=== PATIENT | female | born 1960 | race Caucasian/White ===

== ENCOUNTER 2023-10-07 10:14 | Inpatient (IN) | payer MEDICAID ==
[~2023-10-07] VITALS: Ht 157.5 cm; Wt 78.2 kg
[2023-10-07] MEDS: IV NS 0.9% 1,000 ML BAG IV ONE (11:00)
[2023-10-07 11:08] LABS: BASOPHILS # (AUTO) 0.1 K/uL (0.0-0.2); BASOPHILS % (AUTO) 0.5 % (0.0-2.0); EOSINOPHILS # (AUTO) 0.2 K/uL (0.0-0.7); EOSINOPHILS % (AUTO) 1.4 % (0.0-6.0); HEMATOCRIT 32 % (33-45); HEMOGLOBIN 10.4 g/dL (11.5-14.8); LYMPHOCYTES # (AUTO) 3.2 K/uL (0.8-4.8); LYMPHOCYTES % (AUTO) 28.6 % (20.0-44.0); MEAN CORPUSCULAR HEMOGLOBIN 30 PG (26.0-33.0); MEAN CORPUSCULAR HGB CONC 33 g/dl (31.0-36.0); MEAN CORPUSCULAR VOLUME 93 fL (82-100); MONOCYTES % (AUTO) 9.3 % (2.0-12.0); NEUTROPHILS # (AUTO) 6.7 K/uL (1.8-8.9); NEUTROPHILS % (AUTO) 60.2 % (43.0-81.0); PLATELET COUNT (AUTO) 391 K/uL (150-450); RED BLOOD CELL COUNT(AUTO) 3.44 MIL/uL (4.0-5.2); RED CELL DISTRIBUTION WIDTH 15.1 % (11.5-15.0); WHITE BLOOD COUNT (AUTO) 11.2 K/uL (4.3-11.0)
[2023-10-07 11:20] LABS: INR 1.01 (0.91-1.10); PARTIAL THROMBOPLASTIN TIME 27.9 SEC (24.3-34.3); PROTHROMBIN TIME 10.7 SECS (9.2-11.1)
[2023-10-07 11:29] LABS: CALCIUM, SERUM 8.9 mg/dL (8.5-10.1); CARBON DIOXIDE 30 mmol/L (21-32); CHLORIDE 106 mmol/L (98-107); CREATININE 0.9 mg/dL (0.6-1.3); GLUCOSE 127 mg/dL (74-106); LACTIC ACID 2.2 mmol/L (0.4-2.0); POTASSIUM 4.4 mmol/L (3.5-5.1); SODIUM SERUM 145 mmol/L (136-145); UREA NITROGEN, BLOOD 14 mg/dL (7-18)
[2023-10-07] MEDS: VANCOMYCIN 1 GM in IV D5W 250 ML IV ONE (11:30)
[2023-10-07 11:33] LABS: ALANINE AMINOTRANSFERASE 25 U/L (12-78); ALBUMIN 3.1 g/dL (3.4-5.0); ALKALINE PHOSPHATASE 87 U/L (46-116); ASPARTATE AMINOTRANSFERASE 12 U/L (15-37); BILIRUBIN,DIRECT 0.1 mg/dL (0.0-0.2); BILIRUBIN,TOTAL 0.6 mg/dL (0.2-1.0); TOTAL PROTEIN, SERUM 7.9 g/dL (6.4-8.2)
[2023-10-07] MEDS: PIPERACILLIN /TAZOBACTAM 3.375 G in IV D5W 50 ML IV ONE (11:40)
[2023-10-07] MEDS ORDERED: IPRA4AER INH (12:18)
[2023-10-07] MEDS ORDERED: LABE100T5 GT (12:18)
[2023-10-07] MEDS ORDERED: MAGN400O6 GT (12:18)
[2023-10-07] MEDS ORDERED: CHLO473M5 PO (12:18)
[2023-10-07] MEDS ORDERED: PANT40SU2 GT (12:18)
[2023-10-07] MEDS ORDERED: PROP10TA10 GT (12:18)
[2023-10-07] MEDS ORDERED: IPRA4AER IH (12:18)
[2023-10-07] MEDS ORDERED: FERR220E2 GT (12:18)
[2023-10-07] MEDS ORDERED: ACET325T53 GT (12:18)
[2023-10-07] MEDS ORDERED: CRAN3875 GT (12:18)
[2023-10-07] MEDS ORDERED: NUT.237L31 GT (12:18)
[2023-10-07] MEDS ORDERED: NA P133E RC (12:18)
[2023-10-07] MEDS ORDERED: ACET-2030 GT (12:18)
[2023-10-07] MEDS ORDERED: LEVE100S GT (12:18)
[2023-10-07] MEDS ORDERED: MEROPENEM 1 G in IV NS 0.9% 100 ML IV SCH (13:30)
[2023-10-07 14:37] LABS: APPEARANCE,URINE CLEAR (CLEAR); BILIRUBIN,URINE NEGATIVE (NEGATIVE); BLOOD, URINE TRACE-INTA Ery/uL (NEGATIVE); KETONES,URINE NEGATIVE (NEGATIVE); LEUKOCYTE ESTERASE ,URINE 1+ (NEGATIVE); NITRITE, URINE NEGATIVE (NEGATIVE); PROTEIN,URINE NEGATIVE (NEGATIVE); UGLUCOSE NEGATIVE (NEGATIVE); UROBILINOGEN,URINE 0.2 EU/dL (0.2)
[2023-10-07 14:49] LABS: COLOR,URINE LIGHT YELLOW (YELLOW)
[2023-10-07 14:51] LABS: ADD URINE CULTURE YES; BACTERIA,URINE 1+ /HPF (None Seen); MUCUS,URINE Few /LPF (None Seen); YEAST,URINE Few /HPF (None Seen)
[2023-10-07] MEDS ORDERED: IV NS 0.9% 1,000 ML BAG IV ONE (15:30)
[2023-10-07] MEDS ORDERED: ACETAMINOPHEN 650 MG/SUPP.RECT RC ONE (15:30)
[2023-10-07] MEDS ORDERED: ACETAMINOPHEN ES 500 MG TABLET GT PRN (16:30)
[2023-10-07] MEDS ORDERED: LABETALOL HCL (100MG) 100 MG TABLET GT PRN (16:30)
[2023-10-07] MEDS ORDERED: HOME MED MISCELLANEOUS XX SCH (16:30)
[2023-10-07] MEDS ORDERED: GLUCERNA 1.5 1,000 ML BOTTLE GT SCH (16:30)
[2023-10-07] MEDS ORDERED: NA PHOS,M-B/NA PHOS,DI-BA 1 EA ENEMA RC PRN (16:30)
[2023-10-07] MEDS ORDERED: ONDANSETRON HCL/PF 4 MG/2 ML VIAL IVP PRN (16:30)
[2023-10-07] MEDS ORDERED: ACETAMINOPHEN 325 MG TABLET MC PRN (16:30)
[2023-10-07] MEDS ORDERED: ALBUTEROL FS 2.5 MG/3 ML VIAL.NEB NEB PRN (16:30)
[2023-10-07] MEDS ORDERED: Z GUARD REMEDY 4 OZ OINT TP PRN (16:30)
[2023-10-07] MEDS ORDERED: IPRATROPIUM NEB FS 0.5 MG/2.5 ML AMPUL.NEB NEB PRN (16:30)
[2023-10-07] MEDS ORDERED: MAGNESIUM HYDROXIDE 30 ML UDC GT PRN (16:30)
[2023-10-07 16:54] VITALS: BP 114/72; TEMP 99.1; O2SAT 97
[2023-10-07] MEDS ORDERED: ACETAMINOPHEN 650 MG/20.3 ML UDC PO PRN (17:00)
[2023-10-07] MEDS: CHLORHEXIDINE GLUCONATE 15 ML UDC MM SCH (17:22)
[2023-10-07] MEDS: ENOXAPARIN SODIUM 40 MG/0.4 ML DISP.SYRIN SQ SCH (17:23)
[2023-10-07 20:00] VITALS: BP 107/59; TEMP 97.3; O2SAT 100
[2023-10-07] MEDS: MEROPENEM 1 G in IV NS 0.9% 100 ML IV SCH (21:29)
[2023-10-07] MEDS: LEVETIRACETAM SOL (5 ML) 100 MG/ML UDC GT SCH (21:29)
[2023-10-07] MEDS: PROPRANOLOL HCL 10 MG TABLET GT SCH (21:29)
[2023-10-08] VITALS (7 sets, daily range): BP systolic 99–120; BP diastolic 52–66; TEMP 97.3–98.2; O2SAT 94–99
[2023-10-08] MEDS: VANCOMYCIN 1 GM in IV D5W 250ml IV SCH (01:24)
[2023-10-08] MEDS: GLUCERNA 1.2 1,000 ML BOTTLE NG PRN ×2 (01:36→21:19)
[2023-10-08 07:25] LABS: BASOPHILS % (AUTO) 0.3 % (0.0-2.0); EOSINOPHILS # (AUTO) 0.2 K/uL (0.0-0.7); HEMATOCRIT 29 % (33-45); HEMOGLOBIN 9.4 g/dL (11.5-14.8); LYMPHOCYTES % (AUTO) 26.2 % (20.0-44.0); MEAN CORPUSCULAR HEMOGLOBIN 31 PG (26.0-33.0); MEAN CORPUSCULAR HGB CONC 33 g/dl (31.0-36.0); MEAN CORPUSCULAR VOLUME 94 fL (82-100); MONOCYTES % (AUTO) 13.2 % (2.0-12.0); NEUTROPHILS # (AUTO) 4.3 K/uL (1.8-8.9); NEUTROPHILS % (AUTO) 57.3 % (43.0-81.0); PLATELET COUNT (AUTO) 303 K/uL (150-450); RED BLOOD CELL COUNT(AUTO) 3.08 MIL/uL (4.0-5.2); WHITE BLOOD COUNT (AUTO) 7.5 K/uL (4.3-11.0)
[2023-10-08 07:40] LABS: CALCIUM, SERUM 9.4 mg/dL (8.5-10.1); CREATININE 0.6 mg/dL (0.6-1.3); MAGNESIUM 2.4 mg/dL (1.8-2.4); PHOSPHORUS 3.5 mg/dL (2.5-4.9); POTASSIUM 3.7 mmol/L (3.5-5.1)
[2023-10-08] MEDS: FERROUS SULFATE UDC 300 MG/5 ML UDC GT SCH (09:14)
[2023-10-08] MEDS: PANTOPRAZOLE 40 MG/PACK PACK GT SCH (09:15)
[2023-10-09] VITALS: BP 103/53; TEMP 98.3; O2SAT 98
[2023-10-09 04:00] VITALS: BP 103/52; TEMP 98.1; O2SAT 98
[2023-10-09 07:12] LABS: CALCIUM, SERUM 8.9 mg/dL (8.5-10.1); CREATININE 0.7 mg/dL (0.6-1.3); POTASSIUM 4.1 mmol/L (3.5-5.1)
[2023-10-09 08:00] VITALS: BP 108/46; TEMP 99.6; O2SAT 98
[2023-10-09 12:00] VITALS: BP 102/55; TEMP 97.3; O2SAT 98
[2023-10-09] MEDS: ACETAMINOPHEN 650 MG/20.3 ML UDC GT PRN (13:07)
[2023-10-09 16:00] VITALS: BP 102/53; TEMP 100.5; O2SAT 98
[2023-10-09 20:00] VITALS: BP 128/69; TEMP 97.5; O2SAT 94; O2SAT 98
[2023-10-10] VITALS (7 sets, daily range): BP systolic 104–111; BP diastolic 56–66; TEMP 98.6–99.7; O2SAT 96–100
[2023-10-10 07:12] LABS: CALCIUM, SERUM 9.3 mg/dL (8.5-10.1); CREATININE 0.8 mg/dL (0.6-1.3); POTASSIUM 3.9 mmol/L (3.5-5.1)
[2023-10-11] VITALS (7 sets, daily range): BP systolic 98–122; BP diastolic 52–72; TEMP 98.4–99; O2SAT 98–99
[2023-10-11] MEDS ORDERED: VANCOMYCIN HCL 1.25 GM in IV D5W 250 ML IV SCH
[2023-10-11] MEDS: IV NS 0.9% 250 ML IV PRN (01:54)
[2023-10-11 06:51] LABS: CALCIUM, SERUM 8.8 mg/dL (8.5-10.1); CREATININE 0.7 mg/dL (0.6-1.3); POTASSIUM 3.9 mmol/L (3.5-5.1)
[2023-10-11] MEDS: VANCOMYCIN 750 MG in IV D5W 250 ML IV SCH (15:00)
[2023-10-11 15:30] LABS: BASOPHILS # (AUTO) 0.1 K/uL (0.0-0.2); BASOPHILS % (AUTO) 0.9 % (0.0-2.0); EOSINOPHILS # (AUTO) 0.3 K/uL (0.0-0.7); EOSINOPHILS % (AUTO) 5.4 % (0.0-6.0); HEMATOCRIT 26 % (33-45); HEMOGLOBIN 8.4 g/dL (11.5-14.8); LYMPHOCYTES # (AUTO) 1.9 K/uL (0.8-4.8); LYMPHOCYTES % (AUTO) 33.6 % (20.0-44.0); MEAN CORPUSCULAR HEMOGLOBIN 31 PG (26.0-33.0); MEAN CORPUSCULAR HGB CONC 33 g/dl (31.0-36.0); MEAN CORPUSCULAR VOLUME 94 fL (82-100); MONOCYTES # (AUTO) 0.5 K/uL (0.1-1.30); MONOCYTES % (AUTO) 8.7 % (2.0-12.0); NEUTROPHILS # (AUTO) 2.9 K/uL (1.8-8.9); NEUTROPHILS % (AUTO) 51.4 % (43.0-81.0); PLATELET COUNT (AUTO) 301 K/uL (150-450); RED BLOOD CELL COUNT(AUTO) 2.73 MIL/uL (4.0-5.2); RED CELL DISTRIBUTION WIDTH 15.4 % (11.5-15.0); WHITE BLOOD COUNT (AUTO) 5.7 K/uL (4.3-11.0)
[2023-10-12] VITALS: BP 114/62; TEMP 98.2; O2SAT 100
[2023-10-12 04:00] VITALS: BP 103/67; TEMP 97.7; O2SAT 99
[2023-10-12 08:00] VITALS: BP 118/74; TEMP 98.1; O2SAT 99
[2023-10-12] MEDS: LINEZOLID 600 MG TABLET PEG SCH (10:13)
[2023-10-12 12:00] VITALS: BP 114/72; TEMP 97.2; O2SAT 100
[2023-10-12] MEDS ORDERED: ENOX40DI SQ (12:45)
[2023-10-12] MEDS ORDERED: FERR300L GT (12:45)
[2023-10-12] MEDS ORDERED: Linezolid PEG (12:45)
[2023-10-12 16:00] VITALS: BP 135/65; TEMP 98.5; O2SAT 100
[2023-10-12 20:00] VITALS: TEMP 98.8; O2SAT 100
== END 2023-10-12 21:40 | DRG 720 ==
LOC: ER 10:45 → TELE1 16:19
PROVIDERS: ADMIT Nurse Practitioner Acute Care; ATTEND Internal Medicine
PROC: 5A1955Z Respiratory Ventilation, Greater than 96 Consecutive Hours (ICD-10-PCS; principal; 2023-10-07)
DX: A41.9 Sepsis, unspecified organism (principal); J96.21 Acute and chronic respiratory failure with hypoxia; G93.41 Metabolic encephalopathy; J15.9 Unspecified bacterial pneumonia; E87.20 Acidosis, unspecified; D68.59 Other primary thrombophilia; Z93.0 Tracheostomy status; Z99.11 Dependence on respirator [ventilator] status; N39.0 Urinary tract infection, site not specified; D64.9 Anemia, unspecified; E66.9 Obesity, unspecified; I10 Essential (primary) hypertension; R13.10 Dysphagia, unspecified; Z86.73 Personal history of transient ischemic attack (TIA), and cerebral infarction without residual deficits; Z93.1 Gastrostomy status; Z74.09 Other reduced mobility; G40.909 Epilepsy, unspecified, not intractable, without status epilepticus; Z68.31 Body mass index [BMI] 31.0-31.9, adult; S60.423A Blister (nonthermal) of left middle finger, initial encounter; X58.XXXA Exposure to other specified factors, initial encounter; Y93.9 Activity, unspecified; Y92.129 Unspecified place in nursing home as the place of occurrence of the external cause; B95.2 Enterococcus as the cause of diseases classified elsewhere; Z16.21 Resistance to vancomycin; L03.114 Cellulitis of left upper limb
CPT/HCPCS: 31720; 36415; 71045-TC; 80048-TC; 80061-TC; 80076-TC; 80202-TC; 81001; 83605-TC; 83735-TC; 84100-TC; 84484-TC; 85025-TC; 85730-TC; 87040-TC; 87086-TC; 94002-TC; 94003-TC; 94640-TC; 94760-TC; 94762-TC; 94799-TC; 99082-TC; A4223; G0378; J1650; J1953; J2185; J2543; J3370; J3371; J3490; J7030; J7050; J7060

== ENCOUNTER 2024-01-09 13:25 | Inpatient (IN) | payer MEDICAID ==
[~2024-01-09] VITALS: Ht 152.4 cm; Wt 74.4 kg
[~2024-01-09 13:25] MED LIST: ACET-2030 GT; ACET325T53 GT; CHLO473M5 PO; CRAN3875 GT; ENOX40DI SQ; FERR220E2 GT; FERR300L GT; IPRA4AER IH; IPRA4AER INH; LABE100T5 GT; LEVE100S GT; Linezolid PEG; MAGN400O6 GT; NA P133E RC; NUT.237L31 GT; PANT40SU2 GT; PROP10TA10 GT
[2024-01-09] MEDS: IV NS 0.9% 1,000 ML BAG IV ONE (13:55)
[2024-01-09] MEDS: CEFEPIME 1 GM in IV D5W 50 ML IV ONE (14:00)
[2024-01-09 14:06] LABS: BASOPHILS % (AUTO) 0.6 % (0.0-2.0); EOSINOPHILS # (AUTO) 0.1 K/uL (0.0-0.7); HEMATOCRIT 29 % (33-45); HEMOGLOBIN 9.8 g/dL (11.5-14.8); LYMPHOCYTES # (AUTO) 2.9 K/uL (0.8-4.8); LYMPHOCYTES % (AUTO) 38.7 % (20.0-44.0); MEAN CORPUSCULAR HEMOGLOBIN 33 PG (26.0-33.0); MEAN CORPUSCULAR HGB CONC 33 g/dl (31.0-36.0); MEAN CORPUSCULAR VOLUME 98 fL (82-100); MONOCYTES # (AUTO) 0.6 K/uL (0.1-1.30); MONOCYTES % (AUTO) 7.4 % (2.0-12.0); NEUTROPHILS # (AUTO) 3.8 K/uL (1.8-8.9); NEUTROPHILS % (AUTO) 51.3 % (43.0-81.0); PLATELET COUNT (AUTO) 315 K/uL (150-450); RED BLOOD CELL COUNT(AUTO) 3.01 MIL/uL (4.0-5.2); RED CELL DISTRIBUTION WIDTH 15.7 % (11.5-15.0); WHITE BLOOD COUNT (AUTO) 7.5 K/uL (4.3-11.0)
[2024-01-09 14:22] LABS: INR 1.01 (0.91-1.10); PARTIAL THROMBOPLASTIN TIME 24.1 SEC (24.3-34.3); PROTHROMBIN TIME 10.7 SECS (9.2-11.1)
[2024-01-09 14:23] LABS: ALANINE AMINOTRANSFERASE 15 U/L (12-78); ALBUMIN 3.7 g/dL (3.4-5.0); ALKALINE PHOSPHATASE 48 U/L (46-116); ASPARTATE AMINOTRANSFERASE 11 U/L (15-37); BILIRUBIN,DIRECT 0.1 mg/dL (0.0-0.2); BILIRUBIN,TOTAL 0.5 mg/dL (0.2-1.0); CALCIUM, SERUM 9.2 mg/dL (8.5-10.1); CARBON DIOXIDE 30 mmol/L (21-32); CHLORIDE 103 mmol/L (98-107); CREATININE 0.9 mg/dL (0.6-1.3); GLUCOSE 115 mg/dL (74-106); POTASSIUM 4.3 mmol/L (3.5-5.1); SODIUM SERUM 144 mmol/L (136-145); TOTAL PROTEIN, SERUM 7.8 g/dL (6.4-8.2); UREA NITROGEN, BLOOD 10 mg/dL (7-18)
[2024-01-09] MEDS: VANCOMYCIN 1 GM in IV D5W 250 ML IV ONE (14:25)
[2024-01-09 14:28] LABS: LACTIC ACID 2.9 mmol/L (0.4-2.0)
[2024-01-09 14:32] LABS: APPEARANCE,URINE CLEAR (CLEAR); BILIRUBIN,URINE NEGATIVE (NEGATIVE); BLOOD, URINE NEGATIVE Ery/uL (NEGATIVE); COLOR,URINE YELLOW (YELLOW); KETONES,URINE NEGATIVE (NEGATIVE); LEUKOCYTE ESTERASE ,URINE NEGATIVE (NEGATIVE); NITRITE, URINE NEGATIVE (NEGATIVE); PROTEIN,URINE NEGATIVE (NEGATIVE); UGLUCOSE NEGATIVE (NEGATIVE); UROBILINOGEN,URINE 0.2 EU/dL (0.2)
[2024-01-09] MEDS ORDERED: NUT.237L30 GT (14:36)
[2024-01-09] MEDS ORDERED: ACETAMINOPHEN 325 MG TABLET ONE (14:36)
[2024-01-09] MEDS ORDERED: CEFT2VIA64 IV (14:36)
[2024-01-09] MEDS ORDERED: BISA10SU11 RC (14:36)
[2024-01-09] MEDS: ACETAMINOPHEN 650 MG/20 ML UDC- SA PATIENTS-FEVER ONLY GT PRN (14:45)
[2024-01-09] MEDS ORDERED: BISACODYL SUPP (10 MG) 10 MG/SUPP.RECT SUPP.RECT RC PRN (16:30)
[2024-01-09] MEDS ORDERED: Z GUARD REMEDY 4 OZ OINT TP PRN (16:30)
[2024-01-09] MEDS ORDERED: ACETAMINOPHEN 650 MG/20.3 ML UDC PEG PRN (16:30)
[2024-01-09] MEDS ORDERED: ONDANSETRON HCL/PF 4 MG/2 ML VIAL IVP PRN (16:30)
[2024-01-09] MEDS ORDERED: IOHEXOL-300 100 ML VIAL IV ONE (17:30)
[2024-01-09] MEDS ORDERED: IV NS 0.9% 250 ML IV ONE (17:31)
[2024-01-09] MEDS ORDERED: Medication Not On Formulary EA (Ipratropium/Albuterol Sulfate (Combivent Respimat 20-100 IH SCH (18:00)
[2024-01-09 18:20] VITALS: BP 110/61; TEMP 98.1; O2SAT 99
[2024-01-09] MEDS: IPRATROPIUM NEB FS 0.5 MG/2.5 ML AMPUL.NEB NEB SCH (19:59)
[2024-01-09] MEDS: ALBUTEROL FS 2.5 MG/3 ML VIAL.NEB NEB SCH (19:59)
[2024-01-09 20:00] VITALS: BP 117/69; TEMP 97.5; O2SAT 100
[2024-01-09] MEDS: CHLORHEXIDINE GLUCONATE 15 ML UDC MM SCH (20:56)
[2024-01-09] MEDS: LEVETIRACETAM SOL (5 ML) 100 MG/ML UDC GT SCH (21:46)
[2024-01-09] MEDS: HEPARIN SODIUM, PORCINE 5000 UNITS/1 ML VIAL SQ SCH (21:47)
[2024-01-09] MEDS: IV D5/ 0.9% NACL 1,000 ML IV PRN (21:48)
[2024-01-09] MEDS: VANCOMYCIN 1 GM /D5W 250 ML PB IV ONE (21:55)
[2024-01-09] MEDS: VANCOMYCIN 500 MG in IV D5W 100ml IV ONE (22:04)
[2024-01-09] MEDS ORDERED: CEFEPIME 1 GM VIAL ONE (22:50)
[2024-01-09] MEDS: CEFEPIME 2 GM in IV D5W 100 ML IV SCH (22:57)
[2024-01-10] VITALS: BP 130/69; TEMP 97.5; O2SAT 100
[2024-01-10 04:00] VITALS: BP 125/71; TEMP 97.7; O2SAT 100
[2024-01-10] MEDS ORDERED: CEFEPIME 1 GM VIAL ONE (05:24)
[2024-01-10 07:26] LABS: BASOPHILS % (AUTO) 0.8 % (0.0-2.0); EOSINOPHILS # (AUTO) 0.2 K/uL (0.0-0.7); EOSINOPHILS % (AUTO) 2.5 % (0.0-6.0); HEMATOCRIT 26 % (33-45); HEMOGLOBIN 8.5 g/dL (11.5-14.8); LYMPHOCYTES # (AUTO) 1.3 K/uL (0.8-4.8); LYMPHOCYTES % (AUTO) 20.2 % (20.0-44.0); MEAN CORPUSCULAR HEMOGLOBIN 33 PG (26.0-33.0); MEAN CORPUSCULAR HGB CONC 33 g/dl (31.0-36.0); MEAN CORPUSCULAR VOLUME 99 fL (82-100); MONOCYTES # (AUTO) 0.5 K/uL (0.1-1.30); MONOCYTES % (AUTO) 7.9 % (2.0-12.0); NEUTROPHILS # (AUTO) 4.5 K/uL (1.8-8.9); NEUTROPHILS % (AUTO) 68.6 % (43.0-81.0); PLATELET COUNT (AUTO) 270 K/uL (150-450); RED BLOOD CELL COUNT(AUTO) 2.58 MIL/uL (4.0-5.2); RED CELL DISTRIBUTION WIDTH 15.4 % (11.5-15.0); WHITE BLOOD COUNT (AUTO) 6.5 K/uL (4.3-11.0)
[2024-01-10 07:38] LABS: CALCIUM, SERUM 8.7 mg/dL (8.5-10.1); CREATININE 0.8 mg/dL (0.6-1.3); MAGNESIUM 2.1 mg/dL (1.8-2.4); PHOSPHORUS 3.4 mg/dL (2.5-4.9)
[2024-01-10] MEDS: PANTOPRAZOLE 40 MG/PACK PACK GT SCH (09:19)
[2024-01-10] MEDS: FERROUS SULFATE UDC 300 MG/5 ML UDC GT SCH (09:19)
[2024-01-10] MEDS: VANCOMYCIN 750 MG in IV D5W 250 ML IV SCH (09:19)
[2024-01-10] MEDS ORDERED: GLUCERNA 1.2 1,000 ML BOTTLE NG PRN (12:00)
[2024-01-10] MEDS: GLUCERNA 1.2 1,000 ML BOTTLE GT PRN (13:27)
[2024-01-10] MEDS: CEFEPIME 2 GM in IV D5W 100 ML IV SCH (17:01)
[2024-01-10 20:00] VITALS: BP 117/67; TEMP 98.2; O2SAT 100
[2024-01-11] VITALS: BP 115/61; TEMP 98.2; O2SAT 100
[2024-01-11 04:00] VITALS: BP 115/61; TEMP 98.2; O2SAT 100
[2024-01-11 07:20] LABS: CALCIUM, SERUM 8.5 mg/dL (8.5-10.1); CREATININE 0.7 mg/dL (0.6-1.3); MAGNESIUM 2.3 mg/dL (1.8-2.4); PHOSPHORUS 3.9 mg/dL (2.5-4.9); POTASSIUM 3.8 mmol/L (3.5-5.1)
[2024-01-11 07:44] LABS: BASOPHILS # (AUTO) 0.1 K/uL (0.0-0.2); BASOPHILS % (AUTO) 0.9 % (0.0-2.0); EOSINOPHILS # (AUTO) 0.2 K/uL (0.0-0.7); LYMPHOCYTES # (AUTO) 1.3 K/uL (0.8-4.8); LYMPHOCYTES % (AUTO) 21.2 % (20.0-44.0); MEAN CORPUSCULAR HEMOGLOBIN 33 PG (26.0-33.0); MEAN CORPUSCULAR HGB CONC 34 g/dl (31.0-36.0); MEAN CORPUSCULAR VOLUME 97 fL (82-100); MONOCYTES # (AUTO) 0.3 K/uL (0.1-1.30); MONOCYTES % (AUTO) 5.4 % (2.0-12.0); NEUTROPHILS # (AUTO) 4.3 K/uL (1.8-8.9); NEUTROPHILS % (AUTO) 69.5 % (43.0-81.0); PLATELET COUNT (AUTO) 234 K/uL (150-450); RED BLOOD CELL COUNT(AUTO) 2.32 MIL/uL (4.0-5.2); RED CELL DISTRIBUTION WIDTH 15.6 % (11.5-15.0); WHITE BLOOD COUNT (AUTO) 6.2 K/uL (4.3-11.0)
[2024-01-11 07:49] LABS: HEMATOCRIT 23 % (33-45); HEMOGLOBIN 7.6 g/dL (11.5-14.8)
[2024-01-11 08:00] VITALS: BP 117/66; TEMP 98.1; O2SAT 99
[2024-01-11] MEDS: Fenofibrate 48 MG TABLET GT SCH (09:27)
[2024-01-11 12:00] VITALS: BP 117/59; TEMP 98.8; O2SAT 100
[2024-01-11 16:00] VITALS: BP 109/64; TEMP 98.4; O2SAT 98
[2024-01-11 21:18] VITALS: BP 122/66; TEMP 97.9; O2SAT 96
[2024-01-12 00:31] VITALS: BP 133/70; TEMP 98.4; O2SAT 100
[2024-01-12 04:39] VITALS: BP 131/67; TEMP 98.4; O2SAT 98
[2024-01-12 06:59] LABS: CALCIUM, SERUM 8.5 mg/dL (8.5-10.1); CREATININE 0.8 mg/dL (0.6-1.3); POTASSIUM 3.5 mmol/L (3.5-5.1)
[2024-01-12 08:00] VITALS: BP 107/46; TEMP 99.3; O2SAT 99
[2024-01-12 12:00] VITALS: BP 130/54; TEMP 98.8; O2SAT 99
== END 2024-01-12 15:25 | DRG 720 ==
LOC: ER 13:27 → TELE 17:09
PROVIDERS: ADMIT Nurse Practitioner Family; ATTEND Internal Medicine
PROC: 5A1945Z Respiratory Ventilation, 24-96 Consecutive Hours (ICD-10-PCS; principal; 2024-01-09)
DX: A41.9 Sepsis, unspecified organism (principal); G93.41 Metabolic encephalopathy; E87.20 Acidosis, unspecified; J96.10 Chronic respiratory failure, unspecified whether with hypoxia or hypercapnia; Z93.0 Tracheostomy status; Z99.11 Dependence on respirator [ventilator] status; D64.9 Anemia, unspecified; G40.909 Epilepsy, unspecified, not intractable, without status epilepticus; E11.9 Type 2 diabetes mellitus without complications; Z93.1 Gastrostomy status; I10 Essential (primary) hypertension; R13.10 Dysphagia, unspecified; R65.20 Severe sepsis without septic shock; J98.11 Atelectasis; Z20.822 Contact with and (suspected) exposure to COVID-19
CPT/HCPCS: 31720; 36415; 71045-TC; 71260-TC; 80048-TC; 80061-TC; 80076-TC; 80202-TC; 83605-TC; 83735-TC; 84100-TC; 84484-TC; 85025-TC; 85730-TC; 87040-TC; 87086-TC; 93307-TC; 94002-TC; 94003-TC; 94760-TC; 94762-TC; 94799-TC; A4223; A4623; G0378; J0692; J1644; J1953; J3370; J3371; J7030; J7042; J7050; J7060; Q9967

== ENCOUNTER 2024-03-18 08:42 | Inpatient (IN) | payer MEDICAID ==
[~2024-03-18] VITALS: Ht 165.1 cm; Wt 77.1 kg
[~2024-03-18 08:42] MED LIST changes: +BISA10SU11 RC; +CEFT2VIA64 IV; -ENOX40DI SQ; -FERR300L GT; -Linezolid PEG; +NUT.237L30 GT; -NUT.237L31 GT; -PROP10TA10 GT
[2024-03-18] MEDS ORDERED: NOREPINEPHRINE 8 MG in IV NS 0.9% 250 ML IV ONE (09:00)
[2024-03-18] MEDS: IV NS 0.9% 1,000 ML BAG IV ONE ×2 (09:00→09:30)
[2024-03-18] MEDS: CEFEPIME 1 GM in IV D5W 50 ML IV ONE (09:00)
[2024-03-18] MEDS ORDERED: ACETAMINOPHEN 650 MG/SUPP.RECT RC ONE (09:09)
[2024-03-18 09:23] LABS: BASOPHILS # (AUTO) 0.1 K/uL (0.0-0.2); BASOPHILS % (AUTO) 0.7 % (0.0-2.0); EOSINOPHILS % (AUTO) 0.2 % (0.0-6.0); HEMATOCRIT 34 % (33-45); HEMOGLOBIN 11.2 g/dL (11.5-14.8); LYMPHOCYTES # (AUTO) 5.1 K/uL (0.8-4.8); LYMPHOCYTES % (AUTO) 29.5 % (20.0-44.0); MEAN CORPUSCULAR HEMOGLOBIN 32 PG (26.0-33.0); MEAN CORPUSCULAR HGB CONC 33 g/dl (31.0-36.0); MEAN CORPUSCULAR VOLUME 97 fL (82-100); MONOCYTES # (AUTO) 1.6 K/uL (0.1-1.30); NEUTROPHILS # (AUTO) 10.5 K/uL (1.8-8.9); NEUTROPHILS % (AUTO) 60.6 % (43.0-81.0); PLATELET COUNT (AUTO) 206 K/uL (150-450); RED BLOOD CELL COUNT(AUTO) 3.48 MIL/uL (4.0-5.2); RED CELL DISTRIBUTION WIDTH 14.2 % (11.5-15.0); WHITE BLOOD COUNT (AUTO) 17.4 K/uL (4.3-11.0)
[2024-03-18] MEDS: VANCOMYCIN 1 GM in IV D5W 250 ML IV ONE (09:30)
[2024-03-18] MEDS: ACETAMINOPHEN 650 MG/20.3 ML UDC GT ONE (09:30)
[2024-03-18 09:40] LABS: ALANINE AMINOTRANSFERASE 78 U/L (12-78); ALBUMIN 3.5 g/dL (3.4-5.0); ALKALINE PHOSPHATASE 58 U/L (46-116); ASPARTATE AMINOTRANSFERASE 111 U/L (15-37); BILIRUBIN,DIRECT 0.2 mg/dL (0.0-0.2); BILIRUBIN,TOTAL 0.6 mg/dL (0.2-1.0); CARBON DIOXIDE 22 mmol/L (21-32); CHLORIDE 100 mmol/L (98-107); CREATININE 2.6 mg/dL (0.6-1.3); POTASSIUM 4.9 mmol/L (3.5-5.1); SODIUM SERUM 137 mmol/L (136-145); TOTAL PROTEIN, SERUM 8.1 g/dL (6.4-8.2); UREA NITROGEN, BLOOD 34 mg/dL (7-18)
[2024-03-18] MEDS ORDERED: PROP10TA10 GT (09:45)
[2024-03-18 09:49] LABS: INR 1.25 (0.91-1.10); PARTIAL THROMBOPLASTIN TIME 26.2 SEC (24.3-34.3); PROTHROMBIN TIME 13.1 SECS (9.2-11.1)
[2024-03-18 09:54] LABS: GLUCOSE 419 mg/dL (74-106)
[2024-03-18 10:02] LABS: LACTIC ACID 4.5 mmol/L (0.4-2.0)
[2024-03-18 10:21] LABS: BAND % (MANUAL) 2 % (0.0-5.0); LYMPHOCYTES % (MANUAL) 30 % (16-48); MONOCYTES % (MANUAL) 4 % (0-11.0); NEUTROPHILS % (MANUAL) 64 (42-76)
[2024-03-18 10:22] LABS: ANISOCYTOSIS 1+; PLATELET ESTIMATE ADEQUATE
[2024-03-18 11:19] LABS: APPEARANCE,URINE CLEAR (CLEAR); BILIRUBIN,URINE NEGATIVE (NEGATIVE); BLOOD, URINE TRACE-INTA Ery/uL (NEGATIVE); COLOR,URINE YELLOW (YELLOW); KETONES,URINE NEGATIVE (NEGATIVE); LEUKOCYTE ESTERASE ,URINE NEGATIVE (NEGATIVE); NITRITE, URINE NEGATIVE (NEGATIVE); PH,URINE 6.5 (5.0-8.0); PROTEIN,URINE 2+ mg/dl (NEGATIVE); UGLUCOSE NEGATIVE (NEGATIVE); UROBILINOGEN,URINE 0.2 EU/dL (0.2)
[2024-03-18] MEDS ORDERED: INSULIN REGULAR, HUMAN 100 UNIT/ML 10 ML VIAL ONE (11:23)
[2024-03-18] MEDS: INSULIN REGULAR, HUMAN 100 UNIT/ML 10 ML VIAL SQ ONE (11:25)
[2024-03-18 11:54] LABS: ADD URINE CULTURE NO; BACTERIA,URINE Few /HPF (None Seen); WBC,URINE 0-2 /HPF (0-3)
[2024-03-18] MEDS ORDERED: MAGNESIUM HYDROXIDE 30 ML UDC PO PRN (13:00)
[2024-03-18] MEDS ORDERED: Z GUARD REMEDY 4 OZ OINT TP PRN (13:00)
[2024-03-18] MEDS: IV NS 0.9% 1,000 ML IV PRN (13:18)
[2024-03-18] MEDS ORDERED: MEROPENEM 1 G in IV NS 0.9% 100 ML IV SCH (13:30)
[2024-03-18] MEDS: MEROPENEM 500 MG in IV NS 0.9% 50 ML IV SCH (13:32)
[2024-03-18] MEDS: GLUCERNA 1.2 1,000 ML BOTTLE NG PRN (16:46)
[2024-03-18] MEDS: ONDANSETRON HCL/PF 4 MG/2 ML VIAL IVP PRN (17:25)
[2024-03-18 19:39] LABS: ABG BASE EXCESS -2.8 mmol/L (-2.0-3.0); ABG OXYGEN SATURATION 96.5 % (94.0-98.0); ABG PCO2 26.9 mmHg (32.0-45.0); ABG PO2 87.7 mmHg (83.0-108.0); ABG TOTAL HEMOGLOBIN 11.1 G/dL (12.0-16.0); COHb 0.3 % (0.5-1.5); MetHb 0.4 % (0.0-1.5); O2Hb 95.8 % (94.0-97.0); PEEP,BG 5 cm H2O; SITE, ABG RIGHT RADIAL; VT, ABG 400 mL
[2024-03-18 20:00] VITALS: BP 113/55; TEMP 106.7; O2SAT 96
[2024-03-18] MEDS: ACETAMINOPHEN 650 MG/SUPP.RECT RC PRN (20:20)
[2024-03-18] MEDS: ENOXAPARIN SODIUM 30 MG/0.3 ML DISP.SYRIN SQ SCH (20:59)
[2024-03-19 00:24] VITALS: BP 91/51; TEMP 102.8; O2SAT 96
[2024-03-19 04:00] VITALS: BP 111/62; TEMP 103; O2SAT 98
[2024-03-19] MEDS: PANTOPRAZOLE 40 MG VIAL IV SCH (08:26)
[2024-03-19] MEDS: IV NS 0.9% 1,000 ML IV PRN (10:53)
[2024-03-19 13:15] LABS: CALCIUM, SERUM 7.3 mg/dL (8.5-10.1); CREATININE 2.4 mg/dL (0.6-1.3); MAGNESIUM 1.8 mg/dL (1.8-2.4); PHOSPHORUS 2.4 mg/dL (2.5-4.9); POTASSIUM 3.8 mmol/L (3.5-5.1)
[2024-03-19 13:27] LABS: THYROID STIMULATING HORMONE 0.6 uIU/mL (0.358-3.74)
[2024-03-19 16:00] VITALS: BP 126/48; TEMP 97.9; O2SAT 99
[2024-03-19] MEDS: Sodium Phosphate 15 MMOL in IV NS 0.9% 245 ML IV ONE (16:14)
[2024-03-19 16:27] LABS: BASOPHILS # (AUTO) 0.1 K/uL (0.0-0.2); BASOPHILS % (AUTO) 1.1 % (0.0-2.0); EOSINOPHILS % (AUTO) 0.4 % (0.0-6.0); HEMATOCRIT 28 % (33-45); HEMOGLOBIN 9.4 g/dL (11.5-14.8); LYMPHOCYTES # (AUTO) 1.2 K/uL (0.8-4.8); LYMPHOCYTES % (AUTO) 16.2 % (20.0-44.0); MEAN CORPUSCULAR HEMOGLOBIN 33 PG (26.0-33.0); MEAN CORPUSCULAR HGB CONC 34 g/dl (31.0-36.0); MEAN CORPUSCULAR VOLUME 96 fL (82-100); MONOCYTES # (AUTO) 0.7 K/uL (0.1-1.30); MONOCYTES % (AUTO) 9.5 % (2.0-12.0); NEUTROPHILS # (AUTO) 5.4 K/uL (1.8-8.9); NEUTROPHILS % (AUTO) 72.8 % (43.0-81.0); RED BLOOD CELL COUNT(AUTO) 2.86 MIL/uL (4.0-5.2); RED CELL DISTRIBUTION WIDTH 14.6 % (11.5-15.0); WHITE BLOOD COUNT (AUTO) 7.5 K/uL (4.3-11.0)
[2024-03-19 16:56] LABS: PLATELET COUNT (AUTO) 7 K/uL (150-450)
[2024-03-19 17:02] LABS: BASOPHILS % (MANUAL) 0 % (0.0-2.0); EOSINOPHILS % (MANUAL) 0 % (0-4); LYMPHOCYTES % (MANUAL) 20 % (16-48); MONOCYTES % (MANUAL) 9 % (0-11.0); NEUTROPHILS % (MANUAL) 71 (42-76); PLATELET ESTIMATE DECREASED
[2024-03-19 20:00] VITALS: BP 93/52; TEMP 98.2; O2SAT 96
[2024-03-19] MEDS: VANCOMYCIN 1 GM in IV D5W 250ml IV SCH (21:21)
[2024-03-20] VITALS (9 sets, daily range): BP systolic 94–120; BP diastolic 47–83; TEMP 97.7–99.5; O2SAT 98–100
[2024-03-20 08:40] LABS: BASOPHILS % (AUTO) 0.3 % (0.0-2.0); EOSINOPHILS % (AUTO) 0.2 % (0.0-6.0); HEMATOCRIT 25 % (33-45); HEMOGLOBIN 8.4 g/dL (11.5-14.8); LYMPHOCYTES # (AUTO) 0.9 K/uL (0.8-4.8); LYMPHOCYTES % (AUTO) 11.4 % (20.0-44.0); MEAN CORPUSCULAR HEMOGLOBIN 33 PG (26.0-33.0); MEAN CORPUSCULAR HGB CONC 34 g/dl (31.0-36.0); MEAN CORPUSCULAR VOLUME 96 fL (82-100); MONOCYTES # (AUTO) 0.5 K/uL (0.1-1.30); MONOCYTES % (AUTO) 6.1 % (2.0-12.0); NEUTROPHILS # (AUTO) 6.6 K/uL (1.8-8.9); RED BLOOD CELL COUNT(AUTO) 2.57 MIL/uL (4.0-5.2); RED CELL DISTRIBUTION WIDTH 14.9 % (11.5-15.0); WHITE BLOOD COUNT (AUTO) 8.1 K/uL (4.3-11.0)
[2024-03-20 08:57] LABS: ALBUMIN 2.7 g/dL (3.4-5.0); BILIRUBIN,TOTAL 0.6 mg/dL (0.2-1.0); CALCIUM, SERUM 6.7 mg/dL (8.5-10.1); CREATININE 1.7 mg/dL (0.6-1.3); MAGNESIUM 2.1 mg/dL (1.8-2.4); PHOSPHORUS 3.2 mg/dL (2.5-4.9); POTASSIUM 3.7 mmol/L (3.5-5.1); TOTAL PROTEIN, SERUM 6.3 g/dL (6.4-8.2)
[2024-03-20 09:02] LABS: PLATELET COUNT (AUTO) 17 K/uL (150-450)
[2024-03-20] MEDS ORDERED: IV NS 0.9% 1,000 ML IV PRN (09:30)
[2024-03-20 09:49] LABS: BAND % (MANUAL) 1 % (0.0-5.0); LYMPHOCYTES % (MANUAL) 15 % (16-48); MONOCYTES % (MANUAL) 5 % (0-11.0); NEUTROPHILS % (MANUAL) 79 (42-76); PLATELET ESTIMATE DECREASED
[2024-03-20] MEDS: IV 1/2NS 1000 ML 1,000 ML IV PRN (11:28)
[2024-03-20] MEDS: FREE WATER VIA TUBE FEEDING GT SCH (12:29)
[2024-03-20 13:35] LABS: INR 1.04 (0.91-1.10)
[2024-03-20 13:40] LABS: D-DIMER 34.12 mg/L(FEU (0.17-0.50)
[2024-03-20 14:03] LABS: RHEUMATOID FACTOR SCREEN NEGATIVE (NEGATIVE)
[2024-03-20 15:16] LABS: C-REACTIVE PROTEIN 2.82 mg/dL (0.0-0.30)
[2024-03-20] MEDS: IV D5W 1,000 ML IV ONE (16:34)
[2024-03-20] MEDS: VANCOMYCIN 1 GM in IV D5W 250ml IV SCH (21:00)
[2024-03-21] VITALS (7 sets, daily range): BP systolic 92–124; BP diastolic 46–70; TEMP 97.9–99.7; O2SAT 98–100
[2024-03-21] MEDS: FREE WATER VIA TUBE FEEDING GT SCH (07:00)
[2024-03-21 07:32] LABS: INR 0.96 (0.91-1.10); PROTHROMBIN TIME 10.2 SECS (9.2-11.1)
[2024-03-21 07:36] LABS: D-DIMER 16.06 mg/L(FEU (0.17-0.50)
[2024-03-21 07:47] LABS: ALBUMIN 2.6 g/dL (3.4-5.0); BILIRUBIN,TOTAL 0.5 mg/dL (0.2-1.0); CALCIUM, SERUM 7.1 mg/dL (8.5-10.1); MAGNESIUM 2.2 mg/dL (1.8-2.4); PHOSPHORUS 2.2 mg/dL (2.5-4.9); POTASSIUM 4.1 mmol/L (3.5-5.1); TOTAL PROTEIN, SERUM 5.9 g/dL (6.4-8.2)
[2024-03-21 08:06] LABS: BASOPHILS % (AUTO) 0.2 % (0.0-2.0); EOSINOPHILS # (AUTO) 0.1 K/uL (0.0-0.7); EOSINOPHILS % (AUTO) 1.5 % (0.0-6.0); HEMATOCRIT 24 % (33-45); HEMOGLOBIN 7.9 g/dL (11.5-14.8); LYMPHOCYTES # (AUTO) 0.7 K/uL (0.8-4.8); MEAN CORPUSCULAR HEMOGLOBIN 32 PG (26.0-33.0); MEAN CORPUSCULAR HGB CONC 33 g/dl (31.0-36.0); MEAN CORPUSCULAR VOLUME 99 fL (82-100); MONOCYTES # (AUTO) 0.2 K/uL (0.1-1.30); MONOCYTES % (AUTO) 3.7 % (2.0-12.0); NEUTROPHILS # (AUTO) 4.2 K/uL (1.8-8.9); NEUTROPHILS % (AUTO) 81.6 % (43.0-81.0); RED BLOOD CELL COUNT(AUTO) 2.45 MIL/uL (4.0-5.2); RED CELL DISTRIBUTION WIDTH 15.3 % (11.5-15.0); WHITE BLOOD COUNT (AUTO) 5.2 K/uL (4.3-11.0)
[2024-03-21 08:31] LABS: PLATELET COUNT (AUTO) 19 K/uL (150-450)
[2024-03-21 10:29] LABS: EOSINOPHILS % (MANUAL) 5 % (0-4); LYMPHOCYTES % (MANUAL) 13 % (16-48); MONOCYTES % (MANUAL) 2 % (0-11.0); NEUTROPHILS % (MANUAL) 80 (42-76); PLATELET ESTIMATE DECREASED
[2024-03-21 11:10] LABS: PTH, INTACT 102 pg/mL (15-65)
[2024-03-21 14:09] LABS: *SPE ALBUMIN 2.8 g/dL (2.9-4.4); *SPE ALPHA-1-GLOBULIN 0.3 g/dL (0.0-0.4); *SPE ALPHA-2-GLOBULIN 0.8 g/dL (0.4-1.0); *SPE BETA GLOBULIN 0.9 g/dL (0.7-1.3); *SPE GLOBULIN, TOTAL 2.9 g/dL (2.2-3.9); *SPE M-SPIKE Not Observed g/dL (Not Observed); *SPE PROTEIN TOTAL 5.7 g/dL (6.0-8.5)
[2024-03-21] MEDS: Sodium Phosphate 15 MMOL in IV NS 0.9% 245 ML IV ONE (16:11)
[2024-03-21] MEDS: ACETAMINOPHEN 325 MG TABLET PO ONE (17:14)
[2024-03-21] MEDS ORDERED: GLUCERNA 1.2 1,000 ML BOTTLE NG PRN (18:00)
[2024-03-22] VITALS (7 sets, daily range): BP systolic 106–130; BP diastolic 48–66; TEMP 97.7–98.4; O2SAT 98–100
[2024-03-22] MEDS ORDERED: diphenhydrAMINE HCL 50 MG/ML VIAL IV PRN
[2024-03-22] MEDS: diphenhydrAMINE HCL 50 MG/ML VIAL IV ONE (00:09)
[2024-03-22] MEDS: ACETAMINOPHEN 650 MG/20.3 ML UDC GT PRN (00:10)
[2024-03-22 04:10] LABS: HEPATITIS B SURFACE AB Reactive (.)
[2024-03-22 06:06] LABS: FOLIC ACID > 20.0 ng/mL (>3.0)
[2024-03-22 07:20] LABS: INR 0.92 (0.91-1.10); PARTIAL THROMBOPLASTIN TIME 24.2 SEC (24.3-34.3); PROTHROMBIN TIME 9.8 SECS (9.2-11.1)
[2024-03-22 07:25] LABS: CALCIUM, SERUM 7.9 mg/dL (8.5-10.1); MAGNESIUM 2.6 mg/dL (1.8-2.4); POTASSIUM 4.7 mmol/L (3.5-5.1)
[2024-03-22 07:41] LABS: D-DIMER 10.74 mg/L(FEU (0.17-0.50)
[2024-03-22 07:42] LABS: BASOPHILS % (AUTO) 0.4 % (0.0-2.0); EOSINOPHILS # (AUTO) 0.1 K/uL (0.0-0.7); EOSINOPHILS % (AUTO) 2.4 % (0.0-6.0); HEMATOCRIT 25 % (33-45); HEMOGLOBIN 8.1 g/dL (11.5-14.8); LYMPHOCYTES # (AUTO) 1.2 K/uL (0.8-4.8); LYMPHOCYTES % (AUTO) 29.7 % (20.0-44.0); MEAN CORPUSCULAR HEMOGLOBIN 32 PG (26.0-33.0); MEAN CORPUSCULAR HGB CONC 33 g/dl (31.0-36.0); MEAN CORPUSCULAR VOLUME 98 fL (82-100); MONOCYTES # (AUTO) 0.4 K/uL (0.1-1.30); MONOCYTES % (AUTO) 9.1 % (2.0-12.0); NEUTROPHILS # (AUTO) 2.4 K/uL (1.8-8.9); NEUTROPHILS % (AUTO) 58.4 % (43.0-81.0); RED CELL DISTRIBUTION WIDTH 14.8 % (11.5-15.0)
[2024-03-22 07:50] LABS: PLATELET COUNT (AUTO) 47 K/uL (150-450)
[2024-03-22] MEDS: PANTOPRAZOLE 40 MG/PACK PACK NG SCH (08:39)
[2024-03-22 10:01] LABS: LYMPHOCYTES % (MANUAL) 33 % (16-48); PLATELET ESTIMATE DECREASED
[2024-03-22 10:03] LABS: ANISOCYTOSIS 1+; MONOCYTES % (MANUAL) 6 % (0-11.0); MYELOCYTES % 1 % (0-0); NEUTROPHILS % (MANUAL) 60 (42-76)
[2024-03-22] MEDS ORDERED: MERO500V23 IV (10:32)
[2024-03-22 11:09] LABS: *ANA ANTI-CENTROMERE B AB <0.2 AI (0.0-0.9); *ANA ANTI-DNA(DS) AB, QN <1 IU/mL (0-9); *ANA ANTI-JO-1 <0.2 AI (0.0-0.9); *ANA ANTICHROMATIN ANTIBODY <0.2 AI (0.0-0.9); *ANA RNP ANTIBODIES <0.2 AI (0.0-0.9); *ANA SJOGREN'S ANTI-SS-A <0.2 AI (0.0-0.9); *ANA SJOGREN'S ANTI-SS-B <0.2 AI (0.0-0.9); *ANAANTI-SCLERODERMA-70 AB <0.2 AI (0.0-0.9); *ANASMITH AB <0.2 AI (0.0-0.9); FREE KAPPA LT CHAINS SERUM 55.9 mg/L (3.3-19.4); FREE LAMBDA LT CHAIN SERUM 56.8 mg/L (5.7-26.3); KAPPA/LAMBDA RATIO SERUM 0.98 (0.26-1.65)
== END 2024-03-22 16:07 | DRG 720 ==
LOC: ER 08:45 → TELE1 11:13
PROVIDERS: ATTEND Internal Medicine
PROC: 5A1955Z Respiratory Ventilation, Greater than 96 Consecutive Hours (ICD-10-PCS; principal; 2024-03-18)
PROC: 30233R1 Transfusion of Nonautologous Platelets into Peripheral Vein, Percutaneous Approach (ICD-10-PCS; 2024-03-20)
DX: A41.9 Sepsis, unspecified organism (principal); N17.0 Acute kidney failure with tubular necrosis; R65.21 Severe sepsis with septic shock; J95.851 Ventilator associated pneumonia; G93.49 Other encephalopathy; D61.818 Other pancytopenia; J15.69 Pneumonia due to other Gram-negative bacteria; E87.0 Hyperosmolality and hypernatremia; D69.59 Other secondary thrombocytopenia; E11.9 Type 2 diabetes mellitus without complications; Z93.0 Tracheostomy status; Z99.11 Dependence on respirator [ventilator] status; J96.10 Chronic respiratory failure, unspecified whether with hypoxia or hypercapnia; I21.A1 Myocardial infarction type 2; E87.29 Other acidosis; E86.0 Dehydration; G40.909 Epilepsy, unspecified, not intractable, without status epilepticus; Z93.1 Gastrostomy status; R13.10 Dysphagia, unspecified; M89.8X9 Other specified disorders of bone, unspecified site; Z86.73 Personal history of transient ischemic attack (TIA), and cerebral infarction without residual deficits; I10 Essential (primary) hypertension; S90.522A Blister (nonthermal), left ankle, initial encounter; X58.XXXA Exposure to other specified factors, initial encounter; Y93.9 Activity, unspecified; Y92.129 Unspecified place in nursing home as the place of occurrence of the external cause; I48.92 Unspecified atrial flutter; Y83.3 Surgical operation with formation of external stoma as the cause of abnormal reaction of the patient, or of later complication, without mention of misadventure at the time of the procedure; D68.8 Other specified coagulation defects
CPT/HCPCS: 31720; 36415; 36600; 71045-TC; 74018; 76770-TC; 80048-TC; 80053-TC; 80061-TC; 80076-TC; 80202-TC; 81001; 82550-TC; 82607-TC; 82728-TC; 82803-TC; 82962-TC; 83540-TC; 83605-TC; 83735-TC; 83970; 84100-TC; 84155; 84165; 84443-TC; 84484-TC; 85025-TC; 85045-TC; 85396; 85730-TC; 86140-TC; 86225; 86235; 86431-TC; 86706; 86803; 86850-TC; 87040-TC; 87081-TC; 87086-TC; 87340; 93307-TC; 94002-TC; 94003-TC; 94760-TC; 94762-TC; 94799-TC; 99082-TC; A4223; A7526; A9563; G0378; J0692; J1200; J1650; J1815; J2185; J2405; J2470; J3370; J3490; J7030; J7050; J7060; J7070; P9034